=== PATIENT | female | born 1940 | race Caucasian/White ===

== ENCOUNTER 2023-02-16 10:12 | Outpatient (CLI) | payer MEDICARE, OTHER, SELFPAY | END 2023-02-16 10:13 | disposition home or self-care (01) | LOC: ANHBWCAUD 10:13 | PROVIDERS: PCP Internal Medicine; Visit Provider Otolaryngology | DX: H90.3 Sensorineural hearing loss, bilateral (principal) | CPT/HCPCS: 92557; 92567 ==